=== PATIENT | female | born 1995 | race Caucasian/White ===

== ENCOUNTER 2016-08-02 13:27 | Inpatient (IN) ==
[2016-08-02] MEDS ORDERED: 0.9 % Sodium Chloride 1,000 ML IVC ONE ×2 (13:42→13:46)
[2016-08-02] MEDS ORDERED: *HR* Adenosine 6 MG/2 ML VIAL IVP ONE (13:44)
[2016-08-02 14:07] LABS: Hematocrit 38.9 % (35.3-44.9); Hemoglobin 13.6 g/dL (11.5-15.4); Mean Corpuscular Hemoglobin 29.2 pg (28.0-33.3); Mean Corpuscular Volume 83.5 fL (83.0-100.0); Mean Platelet Volume 10.5 fL (9.4-12.4); Platelet Count 105 K/mcL (140-400); Red Blood Count 4.66 M/mcL (3.82-4.97); Red Cell Distribution Width 12.3 % (11.5-14.5)
[2016-08-02 14:08] LABS: VBG HCO3 17.7 mEq/L (21-27); VBG PH 7.38 pH Units (7.32-7.42)
--- NOTE | 2016-08-02 14:08 | Emergency Department Note ---
Disposition Clinical Impression: Acute respiratory failure with hypoxia Disposition: Admitted As Inpatient Condition: Critical Time of Disposition: 17:43 General Adult HPI - General Chief complaint: ED Shortness of Breath/Dyspnea Stated complaint: BROCK Time Seen by Provider: 08/02/16 13:38 Source: patient, family Limitations: no limitations Nursing Notes Reviewed: Yes Vital Signs Reviewed: Yes - History of Present Illness HPI Narrative: 2 days ago patient began having back pain. Seen in urgent care and placed on Flexeril and ibuprofen. This morning the patient woke and was in severe respiratory distress. She was very diaphoretic. They sought treatment at the emergency department here for this. The patient has no medical history. She has no history of her having a blood clot or a family history of blood clots. She is not on any type of control. Pain Scale: 0 - Related Data Home Medications Medication Instructions Recorded Confirmed Cyclobenzaprine [Flexeril] 10 mg PO TID PRN 08/02/16 08/02/16 Ibuprofen [Ibuprofen] 800 mg PO Q6H PRN 08/02/16 08/02/16 Meloxicam [Meloxicam] 15 mg PO DAILY PRN 08/02/16 08/02/16 Allergies Allergy/AdvReac Type Severity Reaction Status Date / Time No Known Allergies Allergy Verified 08/02/16 13:32 Review of Systems: Patient denies any fevers or chills. She does report diaphoresis. She also reports shortness of breath that began today. She is complaining of left-sided back pain that has been going on for 2 days. She denies any nausea vomiting or diarrhea. She denies any recent illnesses. She denies any calf tenderness. She denies any headaches or trouble with her vision. She denies any Urinary symptoms. She denies any hematochezia or melena or hematuria. She states that she does vap and denies any drug use. All systems ED: reviewed and negative except as stated. Past Medical History - Past Medical History Attestation: Yes The following information was validated with the patient. Medical history: Reports: no medical history Psychiatric history: Reports: no psych history - Social History Smoking Status: Current every day smoker (Patient vapes. States she does not use tobacco.) Smokeless Tobacco Status: No Alcohol use: Reports: none Drug use: Reports: none Physical Exam - General Limitations: no limitations General appearance: alert, anxious - Head Head exam: atraumatic, normocephalic, normal inspection - Eye Eye exam: Present: normal appearance, PERRL, EOMI. Absent: scleral icterus - ENT ENT exam: normal exam, normal oropharynx, mucous membranes moist - Neck Neck exam: Present: normal inspection, full ROM, trachea midline. Absent: tenderness - Chest Chest inspection: Present: normal inspection, symmetric chest wall rise. Absent : tenderness - Respiratory Respiratory exam: Present: normal lung sounds bilaterally, respiratory distress. Absent: wheezes - Cardiovascular Cardiovascular exam: Present: normal rhythm, tachycardia, normal heart sounds - Abdominal Exam Abdominal exam: Present: soft, Non-Tender, normal bowel sounds. Absent: tenderness, distention, guarding, rebound, rigidity, organomegaly - Extremities Exam Extremities exam: Present: normal inspection, full ROM. Absent: tenderness, pedal edema - Back Exam Back exam: Present: normal inspection, full ROM, CVA tenderness (R), CVA tenderness (L). Absent: tenderness - Neurological Exam Neurological exam: Present: alert, oriented X3 - Psychiatric Psychiatric exam: Present: anxious - Skin Skin exam: Present: warm, intact, cyanosis (Oral), diaphoresis. Absent: rash Course Course Narrative: Female patient in severe respiratory distress presenting to the emergency department. Mother is with the patient. Mother states 2 days ago the patient was complaining of left lower back pain. She was seen in urgent care and given Flexeril and ibuprofen. She states today she got very short of breath and began sweating profusely. Sedating to the emergency department. Patient is diaphoretic and tachycardic and hypotensive. Her lung sounds are clear bilaterally. She is cyanotic about the lips. She is on 6 L by nasal cannula and this does bring the patient's oxygen saturation up to 95-96%. An IV was hard to establish due to patient's body habitus. Fluid bolus was slow to start due to this. An ultrasound guided IV was placed by me. Labs were drawn. Patient denies any recent fevers or illnesses. She denies any history of any blood clots. She is not on control. She states she has been laying still for the past couple days due to her back pain. She denies any recent travels. She states she is otherwise healthy. She is not taking any medication other than the prescribed Flexeril and ibuprofen. She is very ill appearing. Chest x-ray has an ARDS appearance. 1. - Reevaluation(s) Reevaluation #1: Patient was placed on BiPAP. She was agreeable to this. It did not take long for the patient to tire out. She stated that she was getting too tired to breathe. Intubation with her. Her mother was at bedside and they both agreed for an emergent intubation. Her respiratory drive was decreasing and she was very tired. Patient was emergently intubated with Versed and fentanyl. This was uncomplicated and a glide scope was used. No tube was placed at 21 at the left. Repeat chest x-ray was done. The tube was advanced initially and then pulled back to 20-1/2. This showed the tip of the ET tube at the karri. Bilateral lung sounds. An OG was placed. I spoke with the car framer several times about this patient. He recommended the patient be placed on vancomycin and Zosyn. Also requesting a CT of her abdomen. We have ordered this. Her urine is sent. He is to follow-up on the CT of her abdomen. Patient was placed on a ventilator. PEEP of 10 was used to maintain an oxygen saturation greater than 88%. Since urine was sent it was dark in color when it was retrieved by Gee catheter. Patient is still in critical condition. Production Hardener was made aware of her tachycardia. She has received 4 L of fluid while down here. I spoke with the family at length about the seriousness of the patient's condition. They expressed understanding. We will move the patient to the ICU. We have discussed placing the patient on heparin for her subsegmental pulmonary embolism Dr. Thacker states he will bronch the patient prior to this administration and then he will place her on this. - Consultations Consultation #1: Dr Thacker accepted Pt in critical condition. Time: 15:43 Vital Signs Temperature 97.5 F L 08/02/16 13:28 Pulse Rate 167 08/02/16 13:28 Respiratory Rate 44 08/02/16 13:28 Blood Pressure 74/33 08/02/16 13:28 O2 Sat by Pulse Oximetry 83 08/02/16 13:28 Temperature 97.5 F L 08/02/16 13:28 Pulse Rate 145 08/02/16 14:41 Respiratory Rate 22 08/02/16 18:00 Blood Pressure 108/69 08/02/16 16:45 O2 Sat by Pulse Oximetry 94 08/02/16 18:00 Oxygen Delivery Oxygen Delivery Ventilator Procedures - Intubation Time out performed: No sedative: Versed Mg Given: 10 Laryngoscope: fiber optic video scope Assist Device Used: fiber optic device ET Tube Size: 8 ET Tube Uncuffed: No Tube Secured Depth (cm): 21 Tube Secured Location: lips Tube Placement Confirmation: visualized tube passing through cords, equal breath sounds bilaterally, no breath sounds over epigastrium, confirmation by capnometry Patient Tolerated Procedure: well Intubation Complications: none Additional Comments: Performed by me chaperoned by Dr. GAXIOLA. Medical Decision Making - Medical Records Medical records reviewed: Yes I reviewed the patient's medical records. - Lab Data Lab results reviewed: Yes I reviewed the patient's lab results. Result diagrams: 08/02/16 13:58 08/02/16 13:58 Lab Results 08/02/16 08/02/16 08/02/16 Range/Units 13:58 13:58 13:58 WBC 5.3 (4.3-11.1) K/mcL RBC 4.66 (3.82-4.97) M/mcL Hgb 13.6 (11.5-15.4) g/dL Hct 38.9 (35.3-44.9) % MCV 83.5 (83.0-100.0) fL MCH 29.2 (28.0-33.3) pg MCHC 35.0 (31.6-35.5) g/dL RDW 12.3 (11.5-14.5) % Plt Count 105 L (140-400) K/mcL MPV 10.5 (9.4-12.4) fL Seg Neutrophils % 34.0 % Band Neutrophils % 56.0 H (0-4) % Lymphocytes % 6.0 % Monocytes % 2.0 % Metamyelocytes % 2.0 H (0) % Neutrophils # 4.8 (1.6-8.9) K/mcL Lymphocytes # 0.3 L (0.6-4.6) K/mcL Monocytes # 0.1 (0.0-1.3) K/mcL Reactive Lymphocytes Present A (Not Present) Toxic Vacuolation Present A (Not Present) Dohle Bodies Present A (Not Present) Platelet Estimate Decreased L (Normal) D-Dimer 41379 H (0-500) ng/mLFEU ABG pH (7.32-7.45) pH Units ABG pCO2 (35-45) mmHg ABG pO2 (85-104) mmHg ABG HCO3 (21-27) mEQ/L ABG Total CO2 (20-26) mEq/L ABG O2 Saturation (95-98) % ABG Base Excess (-2.0 to 3.0) mEq/L VBG pH (7.32-7.42) pH Units VBG pCO2 (41-51) mmHg VBG pO2 (25-40) mmHg VBG HCO3 (21-27) mEq/L Blood Gas Modality Inspired O2 % Sodium 132 L (136-145) mEq/L Potassium 3.0 L (3.5-4.5) mEq/L Chloride 95 L (98-109) mEq/L Carbon Dioxide 17 L (19-29) mEq/L BUN 25 H (7-20) mg/dL Creatinine 2.34 H (0.57-1.11) mg/dL Est GFR ( Amer) 32 L (> 60) Est GFR (Non-Af Amer) 26 L (> 60) BUN/Creatinine Ratio 11 (6-26) Glucose 162 H (70-99) mg/dL Calculated Osmolality 282 (280-300) Lactic Acid (0.5-2.2) mmol/L Calcium 9.5 (8.6-10.8) mg/dL Phosphorus 2.1 L (2.3-4.7) mg/dL Magnesium 1.0 L (1.6-2.6) mg/dL Troponin I (0-0.03) ng/mL Lipase < 4 L (8-78) Units/L Urine Color (Yellow) Urine Clarity (Clear) Urine pH (5.0-8.0) pH Units Ur Specific [place] (1.010-1.025) Urine Protein (Neg-Trace) mg/dL Urine Glucose (UA) (Normal) mg/dL Urine Ketones (Negative) mg/dL Urine Blood (Negative) Urine Nitrite (Negative) Urine Bilirubin (Negative) Urine Urobilinogen (Normal) mg/dL Ur Leukocyte Esterase (Negative) Urine Microscopic RBC (0-3) per hpf Urine Microscopic WBC (0-3) per hpf Ur Squamous Epith Cells (None-Few) per lpf Amorphous Sediment (Few) Urine Bacteria (None-Few) per hpf Hyaline Casts Granular Casts (None Seen) per lpf Urine Yeast Ur Culture Indicated? (NO) 08/02/16 08/02/16 08/02/16 Range/Units 13:58 13:58 14:00 WBC (4.3-11.1) K/mcL RBC (3.82-4.97) M/mcL Hgb (11.5-15.4) g/dL Hct (35.3-44.9) % MCV (83.0-100.0) fL MCH (28.0-33.3) pg MCHC (31.6-35.5) g/dL RDW (11.5-14.5) % Plt Count (140-400) K/mcL MPV (9.4-12.4) fL Seg Neutrophils % % Band Neutrophils % (0-4) % Lymphocytes % % Monocytes % % Metamyelocytes % (0) % Neutrophils # (1.6-8.9) K/mcL Lymphocytes # (0.6-4.6) K/mcL Monocytes # (0.0-1.3) K/mcL Reactive Lymphocytes (Not Present) Toxic Vacuolation (Not Present) Dohle Bodies (Not Present) Platelet Estimate (Normal) D-Dimer (0-500) ng/mLFEU ABG pH (7.32-7.45) pH Units ABG pCO2 (35-45) mmHg ABG pO2 (85-104) mmHg ABG HCO3 (21-27) mEQ/L ABG Total CO2 (20-26) mEq/L ABG O2 Saturation (95-98) % ABG Base Excess (-2.0 to 3.0) mEq/L VBG pH 7.38 (7.32-7.42) pH Units VBG pCO2 30 L (41-51) mmHg VBG pO2 53 H (25-40) mmHg VBG HCO3 17.7 L (21-27) mEq/L Blood Gas Modality Inspired O2 % Sodium (136-145) mEq/L Potassium (3.5-4.5) mEq/L Chloride (98-109) mEq/L Carbon Dioxide (19-29) mEq/L BUN (7-20) mg/dL Creatinine (0.57-1.11) mg/dL Est GFR ( Amer) (> 60) Est GFR (Non-Af Amer) (> 60) BUN/Creatinine Ratio (6-26) Glucose (70-99) mg/dL Calculated Osmolality (280-300) Lactic Acid 6.8 H* (0.5-2.2) mmol/L Calcium (8.6-10.8) mg/dL Phosphorus (2.3-4.7) mg/dL Magnesium (1.6-2.6) mg/dL Troponin I 0.06 H* (0-0.03) ng/mL Lipase (8-78) Units/L Urine Color (Yellow) Urine Clarity (Clear) Urine pH (5.0-8.0) pH Units Ur Specific [place] (1.010-1.025) Urine Protein (Neg-Trace) mg/dL Urine Glucose (UA) (Normal) mg/dL Urine Ketones (Negative) mg/dL Urine Blood (Negative) Urine Nitrite (Negative) Urine Bilirubin (Negative) Urine Urobilinogen (Normal) mg/dL Ur Leukocyte Esterase (Negative) Urine Microscopic RBC (0-3) per hpf Urine Microscopic WBC (0-3) per hpf Ur Squamous Epith Cells (None-Few) per lpf Amorphous Sediment (Few) Urine Bacteria (None-Few) per hpf Hyaline Casts Granular Casts (None Seen) per lpf Urine Yeast Ur Culture Indicated? (NO) 08/02/16 08/02/16 Range/Units 14:45 15:39 WBC (4.3-11.1) K/mcL RBC (3.82-4.97) M/mcL Hgb (11.5-15.4) g/dL Hct (35.3-44.9) % MCV (83.0-100.0) fL MCH (28.0-33.3) pg MCHC (31.6-35.5) g/dL RDW (11.5-14.5) % Plt Count (140-400) K/mcL MPV (9.4-12.4) fL Seg Neutrophils % % Band Neutrophils % (0-4) % Lymphocytes % % Monocytes % % Metamyelocytes % (0) % Neutrophils # (1.6-8.9) K/mcL Lymphocytes # (0.6-4.6) K/mcL Monocytes # (0.0-1.3) K/mcL Reactive Lymphocytes (Not Present) Toxic Vacuolation (Not Present) Dohle Bodies (Not Present) Platelet Estimate (Normal) D-Dimer (0-500) ng/mLFEU ABG pH 7.36 (7.32-7.45) pH Units ABG pCO2 31 L (35-45) mmHg ABG pO2 123 H (85-104) mmHg ABG HCO3 17.5 L (21-27) mEQ/L ABG Total CO2 18.5 L (20-26) mEq/L ABG O2 Saturation 99 H (95-98) % ABG Base Excess -7.0 L (-2.0 to 3.0) mEq/L VBG pH (7.32-7.42) pH Units VBG pCO2 (41-51) mmHg VBG pO2 (25-40) mmHg VBG HCO3 (21-27) mEq/L Blood Gas Modality BIPAP Inspired O2 50 % Sodium (136-145) mEq/L Potassium (3.5-4.5) mEq/L Chloride (98-109) mEq/L Carbon Dioxide (19-29) mEq/L BUN (7-20) mg/dL Creatinine (0.57-1.11) mg/dL Est GFR ( Amer) (> 60) Est GFR (Non-Af Amer) (> 60) BUN/Creatinine Ratio (6-26) Glucose (70-99) mg/dL Calculated Osmolality (280-300) Lactic Acid (0.5-2.2) mmol/L Calcium (8.6-10.8) mg/dL Phosphorus (2.3-4.7) mg/dL Magnesium (1.6-2.6) mg/dL Troponin I (0-0.03) ng/mL Lipase (8-78) Units/L Urine Color Dark Yellow (Yellow) Urine Clarity Turbid A (Clear) Urine pH 5.0 (5.0-8.0) pH Units Ur Specific [place] > 1.030 H (1.010-1.025) Urine Protein 30 H (Neg-Trace) mg/dL Urine Glucose (UA) Normal (Normal) mg/dL Urine Ketones Trace H (Negative) mg/dL Urine Blood Moderate H (Negative) Urine Nitrite Negative (Negative) Urine Bilirubin Moderate H (Negative) Urine Urobilinogen Normal (Normal) mg/dL Ur Leukocyte Esterase Moderate H (Negative) Urine Microscopic RBC 0-3 (0-3) per hpf Urine Microscopic WBC TNTC H (0-3) per hpf Ur Squamous Epith Cells Many H (None-Few) per lpf Amorphous Sediment Many H (Few) Urine Bacteria Many H (None-Few) per hpf Hyaline Casts Test Not Performed Granular Casts Many H (None Seen) per lpf Urine Yeast Test Not Performed Ur Culture Indicated? YES A (NO) - Radiology Data Radiology results reviewed: Yes I reviewed the patient's radiology results. Chest CTA 08/02/16 13:45 IMPRESSION: 1. Acute segmental right lower lobe pulmonary embolus. 2. Numerous peribronchovascular ground-glass nodules throughout both lungs, some of which are cavitary. Differential is broad and includes septic emboli, hypersensitivity pneumonitis, and atypical infection, including fungal infection. Findings were discussed with Lissa Todd at 2:51 pm on 08/02/2016. D/ / 08/02/2016 14:58:03 Silvestre Hernandez MD / Tegan Casiano Interpreting Provider: Silvestre Hernandez MD - EKG Data EKG #1 EKG attestation: Yes I reviewed and interpreted this EKG. EKG results narrative: Sinus tachycardia at a rate of 170. QRS duration is 86. QT is 278. QTC is 370. Previous EKG dated 07/19/2011 showed a sinus arrhythmia. At a rate of 70. Attestation Statement - Attestation Attestation: I, Aidan Gaxiola, examined this patient and my medical decision-making was reviewed with the BIN PACKER/PA/Advanced Practice Nurse/Resident Physician. I agree with the documented findings, disposition and treatment plan as described except to the extent set forth below. 21-year-old female presents with difficulty in breathing. Patient initially presented with back pain 2 days ago in urgent care was sent home with diagnosis of back pain due to possible muscle strain. Over the past 2 days she has progressively worsened and become increasingly short of breath, she also became diaphoretic today. Patient denies fever, chills, nausea, vomiting, chest pain, abdominal pain, diarrhea, vaginal bleeding or vaginal discharge. Sepsis protocol initiated after initial evaluation. Patient placed on BiPAP with moderate improvement of her work of breathing. Initial EKG showed sinus tachycardia with a rate of 170. Heart rate improved after administration of multiple liters of IV fluids. CT of the chest shows multiple likely infectious nodules in the patient's thoracic cavity. He should not intubated in the emergency department she had started to tire while on IPAP. Verbal consent was obtained. At the time of admission to the ICU the patient had stable blood pressure and heart rate had improved.
[2016-08-02 14:21] LABS: BUN/Creatinine Ratio 11 (6-26); Blood Urea Nitrogen 25 mg/dL (7-20); Calcium 9.5 mg/dL (8.6-10.8); Carbon Dioxide 17 mEq/L (19-29); Chloride 95 mEq/L (98-109); Glucose 162 mg/dL (70-99); Osmolality,Calculated 282 (280-300); Sodium 132 mEq/L (136-145); eGFR For African Americans 32 (> 60); eGFR For Non-African Americans 26 (> 60)
[2016-08-02 14:34] LABS: Lymphocytes # 0.3 K/mcL (0.6-4.6); Monocytes # 0.1 K/mcL (0.0-1.3); Neutrophils # 4.8 K/mcL (1.6-8.9); Platelet Estimate Decreased (Normal)
[2016-08-02 14:35] LABS: Dohle Bodies Present (Not Present); Reactive Lymphocytes Present (Not Present); Toxic Vacuolation Present (Not Present)
[2016-08-02] MEDS: 0.9 % Sodium Chloride 1,000 ML IVC SCH ×2 (14:44→14:58)
[2016-08-02 14:55] LABS: ABG HCO3 17.5 mEQ/L (21-27); ABG Oxygen Saturation 99 % (95-98); ABG PCO2 31 mmHg (35-45); ABG PH 7.36 pH Units (7.32-7.45); ABG PO2 123 mmHg (85-104); ABG TCO2 18.5 mEq/L (20-26); Blood Gas FiO2 50 %
[2016-08-02] MEDS ORDERED: *HR* FentaNYL (PF) 100 MCG/2 ML VIAL IVP ONE ×2 (14:55→16:00)
[2016-08-02] MEDS ORDERED: *HR* Midazolam HCl 2 MG/2 ML VIAL IVP ONE (14:56)
[2016-08-02 14:59] LABS: Phosphorous 2.1 mg/dL (2.3-4.7)
[2016-08-02] MEDS ORDERED: *HR* Midazolam HCl 2 MG/2 ML VIAL ONE (15:00)
[2016-08-02] MEDS ORDERED: Propofol 500 MG/50 ML INFUS..BTL ONE (15:09)
[2016-08-02] MEDS ORDERED: *HR* FentaNYL (PF) 100 MCG/2 ML VIAL ONE ×2 (15:10→16:17)
[2016-08-02] MEDS ORDERED: Dexmedetomidine HCl 200 MCG/50 ML MLS IVC SCH (15:15)
[2016-08-02 15:17] LABS: Lipase < 4 Units/L (8-78)
[2016-08-02] MEDS ORDERED: FentaNYL (PF) 1,000 MCG in 0.9 % Sodium Chloride 80 ML IVC SCH ×2 (15:30→16:00)
[2016-08-02] MEDS ORDERED: Piperacillin/Tazobactam 3.375 GM in D5% in Water (Mini-Bag+) 100 ML IVPB ONE (15:31)
[2016-08-02] MEDS ORDERED: Vancomycin 2,000 MG in D5% in Water 500 ML IVPB ONE (15:31)
--- NOTE | 2016-08-02 15:36 | Pulmonology History & Physical ---
Date of Encounter: 08/02/16 Time of Encounter: 15:34 Assessment and Plan (1) Acute respiratory failure with hypoxia Current visit: Yes Status: Acute 21-year-old woman was no significant past medical history who presented with acute hypoxic respiratory failure evidence of bilateral pneumonia that consist of nodular opacity somewhat cavitations disseminated throughout lung ramon leading to severe sepsis and lactic acidosis. In addition she have it has evidence of acute kidney injury likely secondary to prerenal azotemia from same process. Overall picture concerning for disseminated infection possibly bacteremia canno exclude possibility of endocarditis. Other possibilities include invasive fungal infection including Aspergillus or histoplasmosis alternatively and considered less likely would be autoimmune process such as acute vasculitis. In the ED she was given broad-spectrum antimicrobial coverage CTA as aforementioned was performed along with CT abdomen and she was successfully intubated. Unfortunately at the time of intubation patient was noted to vomit On arrival to the intensive care unit patient was noted to be severely hypoxemic with oxygen saturations in the mid 50s. Patient was aggressively bagged via ETT and saturation increased to mid to high 80s. Unfortunately when she was coupled to the ventilator they quickly dropped again.. She progressively became hypotensive and a femoral central venous catheter was placed with administration of vasopressors. She was also giving several amps of bicarbonate during this time for presumed acidosis with worsening hypotension and hypoxemia. Her endotracheal tube was adjusted as she had diminished breath sounds on the right with retraction to the level that was described to me in the intubation at the emergency department her oxygen saturation improved and she and was noted to have bilateral breath sounds. Patient was able to have improvement in oxygen saturation into the 80s with bagging but every time that she was coupled to the ventilator she had low tidal volumes and her oxygen saturation would drop. Chest x-ray was done at this time which was notable for us satisfactory position of the endotracheal tube she continue to have significant hypoxemia with saturations in the mid to low 80s despite bagging with high PEEP. It was decided at this time that given severe refractory nature of her hypoxemia that she would need to be transferred to a tertiary referral center for consideration of extracorporeal membrane oxygenation and we put in a request for evaluation. I also reached out to my colleague and decision was made that her potentially only chance of survival would rest and increasing her oxygen saturation which would likely mean prone positioning. This lesion was made to put the patient in prone positioning she did lead to a increase in oxygen saturation. The patient was unable to be coupled to the ventilator circuit and was placed in pressure control ventilation mode in this mode she had improvement in tidal volume which we suspect lead alveolar recruitment and improvement in oxygen saturation which allowed for a persistent ability to oxygenate in the low to mid 90s on 100% FiO2 and high PEEP (20). At this point she was which back to volume controlled ventilation with continuation of ability to oxygenate Arterial blood gas analysis was notable for severe hypoxemia with a pH of 7.19 she also had evidence of severe space fraction with elevation in CO2 greater than 60. She was persistently hypotensive requiring 2 pressors with titration and bicarbonate drip was also started. I spoke directly with the nursing assoc at the [facility] and explained that patient would need transfer to tertiary level care and he kindly accepted the patient [facility] was notified and I discussed the case with the team with plan to transport patient prone position as felt that repositioning to supine would cause severe de- recruitment and worsened hypoxemia. At this time vital signs were noted to be 102/59 oxygen saturation 97% heart rate of 120 ventilator rate was set at 24 breaths per minute. She was still requiring high doses of 2 vasopressors the decision to move the patient was made as felt that this represented the only strategy to give the patient best chance of survival I attempted to discuss the case a second time with the nursing assoc however he was not available the nursing assoc who was accepting patients to the hospital said the bed is available [facility] crew was present and the patient was okay for transport. Patient was successfully transported to ambulance and [facility] I was present for the entire duration of patient transport including to the takeoff of the helicopter. I was in direct conversation with the family at all times to my best to keep him abreast of the rapidly changing situation and to explain in terms I could not understand the need for transport and the critical nature of her illness. It should be noted that while patient to have small segmental pulmonary embolus on CTA and it was possible that clinical deterioration was related to venous thromboembolism however I felt that her hypoxemia that had acutely worsened was more related to invasive pneumonia with ARDS physiology along with acute aspiration which likely eliminated her respiratory reserve at the time of transfer from the emergency department. This is reinforced by the eventual improvement in oxygenation with prone positioning and ventilator manipulation I spent 120min of Critical Care time with this patient. It involved decision making of high complexity to assess, manipulate, and support vital organ system failure and/or to prevent further life threatening deterioration of the patient' s condition. The time involved in the performance of separately reportable procedures was not counted toward critical care time. (2) Severe sepsis Current visit: Yes Status: Acute (3) Acute pulmonary embolism Current visit: Yes Status: Acute Qualifiers: Pulmonary embolism type: other Acute cor pulmonale presence: without acute cor pulmonale Qualified Code(s): I26.99 - Other pulmonary embolism without acute cor pulmonale (4) Pneumonia Current visit: Yes Status: Acute Qualifiers: Pneumonia type: due to unspecified organism Laterality: bilateral Lung location: unspecified part of lung Qualified Code(s): J18.9 - Pneumonia, unspecified organism (5) Lactic acidosis Current visit: Yes Status: Acute (6) Acute kidney injury Current visit: Yes Status: Acute (7) Thrombocytopenia Current visit: Yes Status: Acute History of Present Illness Chief complaint: Shortness of breath. HPI: Ms. Lawrence is a 21 year old with no significant past medical history who presented for shortness of breath that started earlier in the day.. Her entire history was taken from the medical record and from her parents who she lives with because the patient was intubated at the time that I saw her. Per the parents the patient was in her usual state of health until last when she started complaining of lower back pain. This continued to increase and should severity until Sunday when she went to urgent care and was prescribed ibuprofen and a muscle relaxant (cyclobenzaprine) symptoms did not carlos and Sunday night she started feeling a little short of breath however upon awakening on Sunday she was having increasing shortness of breath and had developed a nonproductive cough over the course of the value stream manager and afternoon she was extremely dyspneic to the point that when her family brought her to the emergency department she was unable to ambulate without stopping after a few steps. She does not use tobacco although she occasionally states nicotine. No illicit drug use no significant animal contacts or exotic hobbies. 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 No significant history of childhood illnesses or immunosuppression per the family Past Med Surg Social Fam HX - Past Medical History Medical history: no medical history Psychiatric history: no psych history - Social History Smoking Status: Never smoker Smokeless Tobacco Status: No Alcohol use: none Drug use: none Medications and Allergies Cyclobenzaprine [Flexeril] 10 mg PO TID PRN 08/02/16 [History] Ibuprofen [Ibuprofen] 800 mg PO Q6H PRN 08/02/16 [History] Meloxicam [Meloxicam] 15 mg PO DAILY PRN 08/02/16 [History] Allergies No Known Allergies Allergy (Verified 08/02/16 13:32) All Systems: A 10-system review of systems was performed and is negative for pertinent findings except as documented above in the HPI. Physical Examination Vital Signs: Vital Signs, Last 4 Hours Temp Pulse Resp BP Pulse Ox 08/02/16 14:41 145 32 103/81 100 08/02/16 14:38 98 08/02/16 13:49 167 44 95/50 95 08/02/16 13:28 97.5 F L 167 44 74/33 83 General appearance: other (Intubated and sedated) Neck: supple Auscultation: bilateral: diminished breath sounds, rhonchi Cardiovascular: other (Rapid rate regular rhythm) Gastrointestinal: normoactive bowel sounds, soft Integumentary: normal Extremities: no edema, no ischemia or petechiae, cyanosis, other (No rash) Musculoskeletal: no deformities pupils equal and round, unable to assess due to mental status Results - Laboratory Findings CBC and BMP: 08/02/16 13:58 08/02/16 13:58 ABG ABG pH 7.36 pH Units (7.32-7.45) 08/02/16 14:45 ABG pCO2 31 mmHg (35-45) L 08/02/16 14:45 ABG pO2 123 mmHg (85-104) H 08/02/16 14:45 ABG O2 Saturation 99 % (95-98) H 08/02/16 14:45 PT/INR, D-dimer D-Dimer 75000 ng/mLFEU (0-500) H 08/02/16 13:58 Abnormal lab findings: Abnormal lab results Plt Count 105 K/mcL (140-400) L 08/02/16 13:58 Band Neutrophils % 56.0 % (0-4) H 08/02/16 13:58 Metamyelocytes % 2.0 % (0) H 08/02/16 13:58 Lymphocytes # 0.3 K/mcL (0.6-4.6) L 08/02/16 13:58 Reactive Lymphocytes Present (Not Present) A 08/02/16 13:58 Toxic Vacuolation Present (Not Present) A 08/02/16 13:58 Dohle Bodies Present (Not Present) A 08/02/16 13:58 Platelet Estimate Decreased (Normal) L 08/02/16 13:58 D-Dimer 70136 ng/mLFEU (0-500) H 08/02/16 13:58 ABG pCO2 31 mmHg (35-45) L 08/02/16 14:45 ABG pO2 123 mmHg (85-104) H 08/02/16 14:45 ABG HCO3 17.5 mEQ/L (21-27) L 08/02/16 14:45 ABG Total CO2 18.5 mEq/L (20-26) L 08/02/16 14:45 ABG O2 Saturation 99 % (95-98) H 08/02/16 14:45 ABG Base Excess -7.0 mEq/L (-2.0 to 3.0) L 08/02/16 14:45 VBG pCO2 30 mmHg (41-51) L 08/02/16 14:00 VBG pO2 53 mmHg (25-40) H 08/02/16 14:00 VBG HCO3 17.7 mEq/L (21-27) L 08/02/16 14:00 Sodium 132 mEq/L (136-145) L 08/02/16 13:58 Potassium 3.0 mEq/L (3.5-4.5) L 08/02/16 13:58 Chloride 95 mEq/L (98-109) L 08/02/16 13:58 Carbon Dioxide 17 mEq/L (19-29) L 08/02/16 13:58 BUN 25 mg/dL (7-20) H 08/02/16 13:58 Creatinine 2.34 mg/dL (0.57-1.11) H 08/02/16 13:58 Est GFR ( Amer) 32 (> 60) L 08/02/16 13:58 Est GFR (Non-Af Amer) 26 (> 60) L 08/02/16 13:58 Glucose 162 mg/dL (70-99) H 08/02/16 13:58 Lactic Acid 6.8 mmol/L (0.5-2.2) H* 08/02/16 13:58 Phosphorus 2.1 mg/dL (2.3-4.7) L 08/02/16 13:58 Magnesium 1.0 mg/dL (1.6-2.6) L 08/02/16 13:58 Troponin I 0.06 ng/mL (0-0.03) H* 08/02/16 13:58 Lipase < 4 Units/L (8-78) L 08/02/16 13:58
--- NOTE | 2016-08-02 15:49 | Electrocardiograph Report ---
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
[2016-08-02] MEDS ORDERED: Naloxone 0.4 MG/ML INJ IVP PRN (15:51)
[2016-08-02 15:52] LABS: Bilirubin,Urine Moderate (Negative); Blood,Urine Moderate (Negative); Clarity,Urine Turbid (Clear); Color,Urine Dark Yellow (Yellow); Glucose,Urine (UA) Normal (Normal); Ketones,Urine Trace mg/dL (Negative); Leukocyte Esterase,Urine Moderate (Negative); Nitrite,Urine Negative (Negative); Protein,Urine 30 mg/dL (Neg-Trace); Specific Gravity,Urine > 1.030 (1.010-1.025); Urobilinogen,Urine Normal (Normal)
[2016-08-02] MEDS ORDERED: Lacri-Lube 3.5 GM TUBE BOTH EYES PRN (15:53)
[2016-08-02 15:55] LABS: RBC,Urine 0-3 per hpf (0-3); Squamous Epithelial Cell,Urine Many per lpf (None-Few); WBC,Urine TNTC per hpf (0-3)
[2016-08-02] MEDS ORDERED: Lacri-Lube 3.5 GM TUBE BOTH EYES SCH (16:00)
[2016-08-02 16:13] LABS: Amorphous Sediment,Urine Many (Few); Granular Casts,Urine Many per lpf (None Seen)
[2016-08-02 16:15] LABS: Bacteria,Urine Many per hpf (None-Few)
[2016-08-02 16:47] VITALS: BP 108/69
[2016-08-02] MEDS ORDERED: *HR* Vecuronium 10 MG VIAL ONE (16:50)
--- NOTE | 2016-08-02 16:55 | Infectious Disease Consult ---
Date of Encounter: 08/02/16 Time of Encounter: 16:53 Assessment and Plan (1) Acute respiratory failure with hypoxia Status: Acute Assessment and plan: Requiring 100% FiO2 and high PEEP on vent support (2) Pneumonia Status: Acute Assessment and plan: Patient has multifocal: Multilobar lesions concerning for atypical pneumonia versus septic emboli versus fungal pneumonia. Patient's clinical picture deteriorated from being awake alert oriented with minimal complaints in the morning other than some shortness of breath to severe respiratory failure requiring FiO2 100 and a PEEP of 10 is very concerning. I did look up us with adverse reactions of the Flexeril to see if there is any cases of pulmonary issues with the Flexeril but I did not find any. Etiology not clear if this is infectious versus noninfectious but because of the severity of the situation. Check respirate infectious panel PCR Get blood cultures 2 stat check LFTs, hepatitis panel and HIV. Check fungal serology Check inflammatory markers, ANCA, ESR, CRP Plan to do bronchoscopy tomorrow morning Send BAL for routine cultures, anaerobes, GMS stain, AFB stain and fungal and AFB cultures. Please check for PJP Start broad-spectrum antibiotics including vancomycin, Zosyn, and Levaquin. Goal vancomycin trough around 15, we'll ask pharmacy to help since patient is in acute kidney injury. Dose adjust Zosyn and Levaquin for creatinine clearance Discuss with pulmonary at length and we will consider starting antifungal until more information is available. measured around 52, but expect it to get worse I had a long discussion with family aware of the gravity of the situation prognosis is overall poor. Family tells me that the patient has received all her childhood vaccines. Qualifiers: Pneumonia type: due to unspecified organism Laterality: bilateral Lung location: unspecified part of lung Qualified Code(s): J18.9 - Pneumonia, unspecified organism (3) Severe sepsis Status: Acute Assessment and plan: Patient had 3 SIRS criteria with lactic acidosis and endorgan damage (4) Acute pulmonary embolism Status: Acute Qualifiers: Pulmonary embolism type: other Acute cor pulmonale presence: without acute cor pulmonale Qualified Code(s): I26.99 - Other pulmonary embolism without acute cor pulmonale (5) Lactic acidosis Status: Acute Assessment and plan: Secondary to severe sepsis (6) Acute kidney injury Status: Acute Assessment and plan: Likely secondary to severe sepsis. (7) Thrombocytopenia Status: Acute Assessment and plan: Likely secondary to severe sepsis. Might need to rule out DIC versus ITP versus TTP (8) Morbid obesity Status: Acute Qualifiers: Obesity type: due to excess calories Qualified Code(s): E66.01 - Morbid ( severe) obesity due to excess calories Infectious Disease HPI - Data of Consult Patient: new to practice Consult date: 08/02/16 Requesting Physician: Jerald Thacker MD Primary Care Provider: PCP NO - Consult Narrative Reason for consult: septic shock History of present illness: Ms. Lawrence is a 21 year old female Patient is 21-year-old woman just admitted to the ICU with acute respiratory failure requiring vent support. We were consulted because of concern for possible infectious etiology. 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 Patient is not an outdoorsy person. They have 1 dog at home. No other animals. Patient per family, did not have any recent travel. No travel outside of the . Patient had no sick exposure. 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 Patient was in the usual state of health until last when she started having left lower back pain. The pain was nonradiating localized. The pain started getting worse and on Sunday she went to an urgent care where they gave her muscle relaxant and Motrin. Patient continued to have worsening pain as per family. On the day of admission this morning she woke up and she was having some shortness of breath. There was no associated pleuritic chest pain, no associated cough or sputum production, no associated hemoptysis. Patient had no fevers no chills and no rigors as per mother. Family brought her to the emergency department. They were telling me that the patient started having significant shortness of were she couldnt finish a sentence. In the ED patient was found to be in severe hypotension, tachycardia with heart rate in the 160s, and acute respiratory failure requiring vent support. Patient was intubated. Labs revealed WBC of 5.3 with 56% bands. D-dimer was 31,000. Patient was also in acute kidney injury with creatinine of 2.34. Lactic acid was 6.8. CT chest revealed acute segmental right lower lobe pulmonary embolus, numerous peribronchial vascular groundglass nodules throughout both lungs, which are cavitary. CT abdomen was also done and results are still pending. Patient was transferred up to the ICU and we were asked to evaluate the patient and make further recommendations. All the information I gathered on the patient were given to me by the mother and father are in the waiting area. CC: Jerald Thacker MD Past Med Surg Social Fam HX - Past Medical History Medical history: no medical history Psychiatric history: no psych history - Social History Smoking Status: Current every day smoker (Patient vapes. States she does not use tobacco.) Smokeless Tobacco Status: No Alcohol use: none Drug use: none Infectious Disease-CN:Meds Cyclobenzaprine [Flexeril] 10 mg PO TID PRN 08/02/16 [History] Ibuprofen [Ibuprofen] 800 mg PO Q6H PRN 08/02/16 [History] Meloxicam [Meloxicam] 15 mg PO DAILY PRN 08/02/16 [History] Allergies No Known Allergies Allergy (Verified 08/02/16 13:32) ROS unobtainable: due to endotracheal tube Exam - Constitutional Vitals: Temp Pulse Resp BP Pulse Ox 97.5 F L 145 16 108/69 100 08/02/16 13:28 08/02/16 14:41 08/02/16 16:45 08/02/16 16:45 08/02/16 14:41 Exam: Sedated, intubated, in no acute distress - Head Head exam: Present: atraumatic, normocephalic - Eye Eye exam: Present: EOMI, PERRL, sclera anicteric Additional comments: Pupils are constricted. No conjunctival hemorrhages noted - ENT Additional comments: Endotracheal tube intact oral gastric tube intact - Neck Neck exam: Present: normal inspection Additional comments: No stridor, tracheal is midline - Respiratory Additional comments: Air sounds audible both lung ramon, diffuse rhonchi. - Cardiovascular Cardiovascular exam: Present: RRR, +S1, +S2 Additional comments: Tachycardic - GI/Abdominal GI/Abdominal exam: Present: hypoactive bowel sounds, soft. Absent: guarding, rigid - Extremities Exam Extremities exam: Present: normal capillary refill, normal inspection. Absent: joint swelling, pedal edema - Neurological Exam Additional comments: Unable to assess since patient is sedated and intubated - Skin Additional comments: No rash noted Infectious Disease CN: Results - Labs CBC & Chem 7: 08/02/16 13:58 08/02/16 13:58 Consult Discharge Plan - Plan Referrals: NO,PCP [Primary Care Provider] -
[2016-08-02] MEDS ORDERED: *HR* Vecuronium 10 MG VIAL IVP ONE (16:59)
[2016-08-02] MEDS ORDERED: Levofloxacin 750 MG/150 ML 750 MG/150 ML BAG IVPB SCH (17:00)
[2016-08-02] MEDS ORDERED: Norepinephrine 4 MG in D5% in Water 250 ML IVC SCH (17:00)
[2016-08-02] MEDS ORDERED: Vecuronium 50 MG in 0.9 % Sodium Chloride 150 ML IVC SCH (17:00)
[2016-08-02] MEDS ORDERED: Voriconazole 500 MG in 0.9 % Sodium Chloride 250 ML IVPB ONE (17:00)
[2016-08-02] MEDS ORDERED: 0.9 % Sodium Chloride 3,000 ML ONE (17:03)
[2016-08-02] MEDS ORDERED: D5% in Water 250 ML ONE (17:34)
[2016-08-02 17:42] LABS: Albumin 2.1 g/dL (3.5-5.0); Albumin/Globulin Ratio 0.6 (1.1-2.2); Bilirubin,Direct 1.4 mg/dL (0.0-0.5); Bilirubin,Indirect 0.5 mg/dL (0.0-1.2); Bilirubin,Total 1.9 mg/dL (0.2-1.2); Globulin 3.3 g/dL (2.4-3.5); Total Protein 5.4 g/dL (6.0-8.3)
[2016-08-02] MEDS ORDERED: Hydrocortisone Sodium Succ 100 MG/2 ML VIAL IVP ONE (17:57)
[2016-08-02 17:58] LABS: ABG Base Excess -4.1 mEq/L (-2.0 to 3.0); ABG HCO3 24.8 mEQ/L (21-27); ABG Oxygen Saturation 91 % (95-98); ABG PCO2 65 mmHg (35-45); ABG PO2 76 mmHg (85-104); ABG TCO2 26.8 mEq/L (20-26)
[2016-08-02 18:00] LABS: ABG PH 7.19 pH Units (7.32-7.45); Blood Gas FiO2 100 %
[2016-08-02] MEDS ORDERED: Sodium Bicarbonate 150 MEQ in D5% in Water 1,000 ML IVC ONE (18:00)
[2016-08-02] MEDS ORDERED: Albumin Human 5% 25.0 GM/500 ML VIAL ONE (18:10)
--- NOTE | 2016-08-02 18:12 | Procedure Note ---
<Aleksander Shelley - Last Filed: 08/02/16 18:07> Date of procedure: 08/02/16 Pre-op diagnosis: Hypotension Post-op diagnosis: same Procedure: Central venous catheter placement: Verbal consent was obtained from the family. The procedure was considered emergent. The right inguinal area was surveyed using ultrasound and deemed to be a suitable target. The patient was cleaned and draped in the usual sterile fashion. Under ultrasound guidance the introducer needle was advanced into the right femoral vein. Dark red, nonpulsatile blood flow was returned. The guidewire was then advanced the needle and into the femoral vein without resistance. The needle then was removed, a yanelis in the skin was made using the scalpel, and the dilator was passed over the guidewire and the skin and soft tissues were dilated. The dilator was then removed. A 20 cm triple-lumen catheter was advanced over the guidewire and into the right femoral vein. The guidewire was then removed intact. All 3 ports were tested and deemed to draw blood and flush easily. The catheter was then sutured in place, Biopatch and sterile dressing were applied. The patient tolerated the procedure well, there are no immediate complications from central line placement. The attending physician, Dr. Thacker, was present for the entire procedure. Anesthesia: GETA Surgeon: Aleksander Shelley Estimated blood loss (cc): 20 IV fluids (cc): 10 Pathology: none sent Condition: critical Disposition: ICU <Jerald Thacker - Last Filed: 08/02/16 19:12> Procedure: I was present for the entire procedure
[2016-08-02] MEDS ORDERED: D5% in Water 250 ML IV BAG IV ONE (18:59)
[2016-08-02] MEDS ORDERED: *HR* Midazolam HCl 5 MG/5 ML VIAL IVP ONE (18:59)
[2016-08-02] MEDS ORDERED: *HR* EPINEPHrine 30 MG/30 ML MDV INFILT ONE (18:59)
[2016-08-02] MEDS ORDERED: *HR* LORazepam 2 MG/ML VIAL IVP ONE (18:59)
[2016-08-02] MEDS ORDERED: *HR* Norepinephrine 4 MG/4 ML VIAL IVC ONE (18:59)
[2016-08-02] MEDS ORDERED: Chlorhexidine Rinse 15 ML MOUTHWASH MM SCH (21:00)
[2016-08-02 23:47] LABS: Acinetobacter baumannii by PCR Not Detected (Not Detect); Candida albicans by PCR Not Detected (Not Detect); Candida glabrata by PCR Not Detected (Not Detect); Candida krusei by PCR Not Detected (Not Detect); Candida parapsilosis by PCR Not Detected (Not Detect); Candida tropicalis by PCR Not Detected (Not Detect); Enterococcus by PCR Not Detected (Not Detect); Escherichia coli by PCR Not Detected (Not Detect); Klebsiella oxytoca by PCR Not Detected (Not Detect); Klebsiella pneumoniae by PCR Not Detected (Not Detect); Pseudomonas aeruginosa by PCR Not Detected (Not Detect); Serratia marcescens by PCR Not Detected (Not Detect); Staphylococcus aureus by PCR ***DETECTED*** (Not Detect); Streptococcus agalactiae(B)PCR Not Detected (Not Detect); Streptococcus by PCR Not Detected (Not Detect); Streptococcus pneumoniae PCR Not Detected (Not Detect); Streptococcus pyogenes (A) PCR Not Detected (Not Detect); blaKPC Carbapenem-Resist Gene Not Detected (Not Detect); mecA Methicillin-Resist Gene ***DETECTED*** (Not Detect); vanA/B Vancomycin-Resist Genes Not Detected (Not Detect)
[2016-08-03] MEDS ORDERED: SODIUM CHLORIDE 0.9% IVPB SCH (05:00)
[2016-08-03] MEDS ORDERED: VORICONAZOLE IVPB SCH (05:00)
[2016-08-03] MEDS ORDERED: Pantoprazole 40 MG VIAL IVPB SCH (09:00)
[2016-08-05 01:19] LABS: A.galactomannan Ag Index 0.04
[2016-08-05 10:31] LABS: ANA IgG by ELISA NONE DETECTED (None Detected)
[2016-08-07 08:14] LABS: Myeloperoxidase Ab 2 AU/mL (0-19); Serine Protease-3 Antibody 0 AU/mL (0-19)
== END 2016-08-02 19:00 | disposition critical access hospital (66) | DRG 871 ==
LOC: EMEROO 13:27 → ICNU 16:09
PROVIDERS: ADMIT Internal Medicine Hospice and Palliative Medicine; ATTEND Internal Medicine Hospice and Palliative Medicine